=== PATIENT | female | born 1945 | race Caucasian/White ===

== ENCOUNTER → 2016-06-09 | Day surgery (SDC) | payer MEDICARE, OTHER | END | disposition home or self-care (01) | LOC: SDC 10:36 | DX: C67.9 Malignant neoplasm of bladder, unspecified (principal); Z85.54 Personal history of malignant neoplasm of ureter; Z79.899 Other long term (current) drug therapy; Z79.82 Long term (current) use of aspirin; Z90.5 Acquired absence of kidney | CPT/HCPCS: J9031 ==

== ENCOUNTER → 2016-06-16 | Day surgery (SDC) | payer MEDICARE, OTHER | END | disposition home or self-care (01) | LOC: SDC 10:29 | DX: C67.9 Malignant neoplasm of bladder, unspecified (principal); Z91.041 Radiographic dye allergy status; Z79.82 Long term (current) use of aspirin; Z79.891 Long term (current) use of opiate analgesic; Z79.899 Other long term (current) drug therapy; Z90.5 Acquired absence of kidney; Z98.890 Other specified postprocedural states | CPT/HCPCS: J9031 ==

== ENCOUNTER → 2016-06-30 | Day surgery (SDC) | payer MEDICARE, OTHER | END | disposition home or self-care (01) | LOC: SDC 09:56 | DX: C67.9 Malignant neoplasm of bladder, unspecified (principal); Z79.82 Long term (current) use of aspirin; Z79.899 Other long term (current) drug therapy | CPT/HCPCS: J9031 ==

== ENCOUNTER → 2016-07-03 | Day surgery (SDC) | payer MEDICARE, OTHER | END | disposition home or self-care (01) | LOC: SDC 06-02 12:00 | DX: C67.9 Malignant neoplasm of bladder, unspecified (principal); Z90.5 Acquired absence of kidney; Z79.82 Long term (current) use of aspirin; Z79.899 Other long term (current) drug therapy | CPT/HCPCS: J9031 ==

== ENCOUNTER → 2016-07-25 | Day surgery (SDC) | payer MEDICARE, OTHER | END | disposition home or self-care (01) | LOC: SDC 07-07 12:00 | DX: C67.9 Malignant neoplasm of bladder, unspecified (principal); Z91.041 Radiographic dye allergy status; Z79.82 Long term (current) use of aspirin; Z79.891 Long term (current) use of opiate analgesic; Z79.899 Other long term (current) drug therapy; Z90.5 Acquired absence of kidney | CPT/HCPCS: J9031 ==

== ENCOUNTER → 2016-08-11 | Day surgery (SDC) | payer MEDICARE, OTHER ==
[~2016-08-11] VITALS: Ht 149.9 cm; Wt 68.9 kg
== END | disposition home or self-care (01) ==
LOC: SDC 11:26
DX: C67.9 Malignant neoplasm of bladder, unspecified (principal); Z91.041 Radiographic dye allergy status
CPT/HCPCS: J9031